=== PATIENT | female | born 2005 | race Caucasian/White ===

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

== ENCOUNTER 2023-04-10 18:54 | Emergency (ER) | payer OTHER ==
--- NOTE | 2023-04-10 19:36 | ED ---
General Adult HPI <Jace Celeste - Last Filed: 04/10/23 19:37> - General Source: patient Mode of arrival: ambulatory Limitations: no limitations <Bettina Lindsey - Last Filed: 04/11/23 23:00> - General Stated complaint: R knee injury - History of Present Illness Initial comments: 18-year-old presenting to the ED with a chief complaint of right knee pain. Patient states she was snowboarding earlier today. States during this her right knee twisted and now notes she has been having pain in her right knee. No other injuries at this time. (Jace Celeste) 18-year-old female presenting with chief complaint of right knee pain. Patient was snowboarding earlier today, she states that she initially hit her right knee on a chunk of ice, later she twisted her knee. She is having pain mainly at the inferior portion of the knee. She admits to pain with weightbearing. She still has full range of motion. (Bettina Lindsey) - Related Data Allergies Allergy/AdvReac Type Severity Reaction Status Date / Time amoxicillin Allergy Unknown Verified 04/10/23 20:01 clindamycin Allergy Unknown Verified 04/10/23 20:01 doxycycline Allergy Unknown Verified 04/10/23 20:01 Childhood Review of Systems ROS Other: All systems not noted in ROS Statement are negative. <Jace Celeste - Last Filed: 04/10/23 19:37> ROS Other: All systems not noted in ROS Statement are negative. <Bettina Lindsey - Last Filed: 04/11/23 23:00> ROS Statement: Those systems with pertinent positive or pertinent negative responses have been documented in the HPI. General Exam <Jace Celeste - Last Filed: 04/10/23 19:37> Limitations: no limitations General appearance: alert, in no apparent distress Head exam: Present: atraumatic, normocephalic Eye exam: Present: normal appearance Neck exam: Present: normal inspection Respiratory exam: Absent: respiratory distress Right Knee exam: Present: full ROM, tenderness Neurological exam: Present: alert, oriented X3 Psychiatric exam: Present: normal affect, normal mood <Bettina Lindsey - Last Filed: 04/11/23 23:00> - General Exam Comments Initial Comments: Visual Physical Exam Vital signs reviewed General: Well-appearing, nontoxic, no acute distress. Head: Normocephalic, atraumatic Eyes: PERRLA, EOMI ENT: Airway patent Chest: Nonlabored breathing Skin: No visual rash, normal skin tone Neuro: Alert and oriented 3 Musculoskeletal: No gross abnormalities. Ambulates without difficulty. (Jace Celeste) Course Vital Signs 04/10/23 04/10/23 19:57 21:42 Temperature 98.2 F 98.0 F Pulse Rate 108 H 79 Respiratory 16 16 Rate Blood Pressure 129/74 114/73 O2 Sat by Pulse 100 99 Oximetry Medical Decision Making <Jace Celeste - Last Filed: 04/10/23 19:37> <Bettina Lindsey - Last Filed: 04/11/23 23:00> - Medical Decision Making Quicknote portion performed. Signed Jace Celeste PA-C (Jace Celeste) Was pt. sent in by a medical professional or institution (DAMION Darling, CLINIC SUPERVISOR, urgent care, hospital, or shelter...) When possible be specific @ -No Did you speak to anyone other than the patient for history (EMS, parent, family, police, friend...)? What history was obtained from this source @ -No Did you review nursing and triage notes (agree or disagree)? Why? @ -I reviewed and agree with nursing and triage notes Were old charts reviewed (outside hosp., previous admission, EMS record, old EKG, old radiological studies, urgent care reports/EKG's, shelter records)? Report findings @ -No old charts were reviewed Differential Diagnosis (chest pain, altered mental status, abdominal pain women, abdominal pain men, vaginal bleeding, weakness, fever, dyspnea, syncope, headache, dizziness, GI bleed, back pain, seizure, CVA, palpatations, mental health, musculoskeletal)? @ -Differential Musculoskeletal Muscular strain, contusion, ligament sprain, fracture, arthritis, septic arthritis, bursitis, cellulitis, muscle spasm, nerve compression, DVT, arterial occlusion, herpes zoster, electrolyte abnormality, tumor.... This is not meant to be in all inclusive list EKG interpreted by me (3pts min.). @ -As above X-rays interpreted by me (1pt min.). @ -X-ray shows mild anterior soft tissue swelling. No knee joint effusion or acute osseous abnormality seen CT interpreted by me (1pt min.). @ -None done U/S interpreted by me (1pt. min.). @ -None done What testing was considered but not performed or refused? (CT, X-rays, U/S, labs)? Why? @ -None What meds were considered but not given or refused? Why? @ -None Did you discuss the management of the patient with other professionals (professionals i.e. , PA, CLINIC SUPERVISOR, lab, RT, psych nurse, social human services assistants, abrasive grader helper, teacher, biological technical officer, case maker)? Give summary @ -No Was smoking cessation discussed for >3mins.? @ -No Was critical care preformed (if so, how long)? @ -No Were there social determinants of health that impacted care today? How? (Homelessness, low income, unemployed, alcoholism, drug addiction, transportation, low edu. Level, literacy, decrease access to med. care, nursing home, rehab)? @ -No Was there de-escalation of care discussed even if they declined (Discuss DNR or withdrawal of care, Hospice)? DNR status @ -No What co-morbidities impacted this encounter? (DM, HTN, Smoking, COPD, CAD, Can cer, CVA, ARF, Chemo, Hep., AIDS, mental health diagnosis, sleep apnea, morbid obesity)? @ -None Was patient admitted / discharged? Hospital course, mention meds given and route, prescriptions, significant lab abnormalities, going to OR and other pertinent info. @ -18-year-old female presenting with chief complaint of knee injury. X-rays n egative for acute osseous process. Patient is provided with crutches and instructed to follow up with orthopedics. Follow-up with PCP. Report back to ER with any new or worsening symptoms. Discussed return parameters and answered all questions. Patient conveyed verbal understanding and agreed to the plan. I discussed this case in detail with my attending Dr. Razo Undiagnosed new problem with uncertain prognosis? @ -No Drug Therapy requiring intensive monitoring for toxicity (Heparin, Nitro, Insulin, Cardizem)? @ -No Were any procedures done? @ -No Diagnosis/symptom? @ -Knee sprain Acute, or Chronic, or Acute on Chronic? @ -acute Uncomplicated (without systemic symptoms) or Complicated (systemic symptoms)? @ -Uncomplicated Side effects of treatment? @ -No Exacerbation, Progression, or Severe Exacerbation? @ -No Poses a threat to life or bodily function? How? (Chest pain, USA, OR, pneumonia, PE, COPD, DKA, ARF, appy, cholecystitis, CVA, Diverticulitis, Homicidal, Suicidal, threat to staff... and all critical care pts) @ -No (Bettina Lindsey) Disposition <Jace Celeste - Last Filed: 04/10/23 19:37> Is patient prescribed a controlled substance at d/c from ED?: No Time of Disposition: 20:53 <Bettina Lindsey - Last Filed: 04/11/23 23:00> Clinical Impression: Knee sprain Disposition: HOME SELF-CARE Condition: Good Instructions (If sedation given, give patient instructions): Knee Sprain (ED) Additional Instructions: Follow-up with PCP and orthopedics. Report back to ER with any new or worsening symptoms. Referrals: Travon Larson MD [Primary Care Provider] - 1-2 days Rosio Álvarez DO [Doctor of Osteopathic Medicine] - 1-2 days
[2023-04-10 20:16] VITALS: RESP 16
--- NOTE | 2023-04-10 20:31 | XR ---
EXAMINATION TYPE: XR knee complete RT DATE OF EXAM: 04/10/2023 COMPARISON: NONE HISTORY: 18 year-old female with right knee pain after injury TECHNIQUE: 3 views FINDINGS: Mild anterior soft tissue swelling. Extensor mechanism is intact. No significant joint effu jaren. No acute fracture, subluxation, or dislocation. IMPRESSION: Mild anterior soft tissue swelling. No knee joint effusion or acute osseous abnormality seen.
[2023-04-10 21:45] VITALS: BP 114/73; PULSE 79; TEMP 98
== END 2023-04-10 21:24 | disposition home or self-care (01) ==
LOC: EC 18:54
DX: S83.91XA Sprain of unspecified site of right knee, initial encounter (principal); Z88.0 Allergy status to penicillin; Z88.8 Allergy status to other drugs, medicaments and biological substances; X50.0XXA Overexertion from strenuous movement or load, initial encounter; Y93.23 Activity, snow (alpine) (downhill) skiing, snowboarding, sledding, tobogganing and snow tubing
CPT/HCPCS: 99283

== ENCOUNTER 2023-08-07 06:21 | Day surgery (SDC) | payer SELFPAY ==
[2023-08-06 09:36] VITALS: BMI 20.5
[~2023-08-07 06:21] MED LIST: SODIUM CHLORIDE 0.9% 1,000 ML IV SCH
[2023-08-07] MEDS: SODIUM CHLORIDE 0.9% 500 ML 500 ML IV ONE (06:44)
[2023-08-07 07:08] VITALS: BP 124/65; PULSE 56; RESP 16; TEMP 97.9
--- NOTE | 2023-08-11 18:55 | P.EPPROC ---
- EP Procedure Note Electrophysiology Procedure Note: Diagnosis Recurrent presyncope 12 EKG shows sinus mechanism normal OH narrow QRS early repolarization abnormality heart rate 47 beats a minute Tilt table test per protocol Baseline blood pressure 111/66 previously mercury baseline heart rate 51 beats a minute patient was tilted upright in angle of 70 degrees per protocol No change in heart rate or blood pressure She complained of tunnel vision off-and-on numbness and tingling in the hands and feet but without any change in heart rate or blood pressure Impression Sinus bradycardia 47 beats a minute Normal heart rate and blood pressure response to upright tilting During his symptoms her heart rates were in the normal range during tilt table testing
== END 2023-08-07 08:12 | disposition home or self-care (01) ==
LOC: CATHEP 06:21
PROVIDERS: ATTEND Internal Medicine Clinical Cardiac Electrophysiology
DX: R55 Syncope and collapse (principal)
CPT/HCPCS: 81025; 93660